=== PATIENT | female | born 1960 | race Caucasian/White ===

== ENCOUNTER → 2017-05-05 | Outpatient (CLI) | payer OTHER ==
[~2017-05-05] MED LIST: ASPEC81 PO; CLB200 PO; LISI-729 PO; OXYSR10 PO; SNK PO
== END | disposition home or self-care (01) ==
LOC: C.LAB 17:25
PROVIDERS: ATTEND Orthopaedic Surgery Sports Medicine
DX: M19.91 Primary osteoarthritis, unspecified site (principal)